=== PATIENT | female | born 1995 ===

== ENCOUNTER 2021-03-04 16:27 | Outpatient (CLI) | payer SELFPAY ==
[2021-03-04] MEDS ORDERED: LACTATED RINGERS 1,000 ML IV ONE (16:50)
[2021-03-04 17:16] VITALS: BP 105/61
--- NOTE | 2021-03-05 07:04 | Ultrasound Report ---
ULTRASOUND OBSTETRIC Indication: Decreased movement. Findings: There is a single intrauterine . BPD = 6.2 cm = 25 weeks, 1 day(s). Head circumference = 24.2 cm = 26 weeks, 2 day(s). Abdominal circumference = 21 cm = 25 weeks, 3 day(s). Femur length = 5.3 cm = 28 weeks, 0 day(s). Overall estimated sonographic age = 26 weeks, 2 day(s). heart rate is 131 beats per minute. Estimated weight is 936 grams position is cephalic. Cervix appears closed. Placenta is posterior and grade 0 . Amniotic fluid volume appears normal. . Impression: 1. Single living intrauterine with estimated sonographic age of 26 weeks, 2 day(s). See ab camilo comments. Signer Name: Gunnar Holland MD Signed: 03/05/2021 7:00 AM Workstation Name: [id number]
== END 2021-03-04 21:51 | disposition home or self-care (01) ==
LOC: TRG 16:27 → APU 16:32 → TRG 21:51
PROVIDERS: ATTEND Obstetrics & Gynecology
DX: O36.8120 Decreased fetal movements, second trimester, not applicable or unspecified (principal); Z3A.27 27 weeks gestation of pregnancy
CPT/HCPCS: 59025; 76805; 76816